=== PATIENT | female | born 1990 | race Caucasian/White ===

== ENCOUNTER 2020-08-29 08:52 | Observation (INO) | payer OTHER ==
[~2020-08-29] VITALS: Ht 165.1 cm; Wt 57.9 kg
[2020-08-29] MEDS ORDERED: ALPR0.5T93 PO (09:46)
[2020-08-29] MEDS ORDERED: BETA15CR5 TP (09:46)
[2020-08-29 09:47] VITALS: BP 115/83
[2020-08-29 10:08] LABS: INTERNATIONAL NORMALIZED RATIO 1.24 (0.93-1.1); PROTHROMBIN TIME 13.2 Seconds (9.6-11.5)
[2020-08-29 10:09] LABS: ALANINE AMINOTRANSFERASE 29 U/L (12-78); ALBUMIN 3.7 g/dL (3.4-5.0); ANION GAP 4 mmol/L (5-15); CALCIUM 8.7 mg/dL (8.5-10.1); CHLORIDE 108 mmol/L (98-107); CREATININE 0.51 mg/dL (0.55-1.02)
[2020-08-29 10:11] LABS: BASOPHILS % (AUTO) 1 % (0-1); EOSINOPHILS % (AUTO) 4 % (1-7); LYMPHOCYTES % (AUTO) 30 % (22-44); MEAN CORPUSCULAR HEMOGLOBIN 28.3 pg (27.0-34.8); MEAN CORPUSCULAR HGB CONC 34.2 g/dL (32.4-35.8); MEAN PLATELET VOLUME 8.2 fL (7.4-10.4); MONOCYTES % (AUTO) 8 % (2-9); NEUTROPHILS % (AUTO) 58 % (42-75); PLATELET COUNT 225 x10^3/uL (130-400); RED BLOOD COUNT 5.08 x10^6/uL (3.82-5.3); RED CELL DISTRIBUTION WIDTH 12.4 % (9.6-15.2)
[2020-08-29 10:14] LABS: ALKALINE PHOSPHATASE 83 U/L (45-117); BILIRUBIN,TOTAL 0.6 mg/dL (0.2-1.0); TOTAL PROTEIN 6.5 g/dL (6.4-8.2)
[2020-08-29 10:15] LABS: MD NO
[2020-08-29] MEDS ORDERED: SODIUM CHLORIDE 0.9% 1,000 ML IV SCH (11:00)
[2020-08-29] MEDS ORDERED: LIDOCAINE 1%, 20ML ONE (12:45)
[2020-08-29] MEDS ORDERED: ISOPROTERENOL 0.2MG/ML, 5ML ONE (12:45)
[2020-08-29] MEDS ORDERED: MIDAZOLAM 1 MG/ML, 2ML ONE (12:45)
[2020-08-29] MEDS ORDERED: FENTANYL PF 100 MCG/2ML ONE ×2 (12:45→13:39)
[2020-08-29] MEDS ORDERED: HEPARIN 1,000 UNITS/ML, 10ML ONE (13:49)
[2020-08-29] MEDS ORDERED: PROTAMINE SULFATE 10 MG/ML, 5ML ONE (14:27)
[2020-08-29] MEDS ORDERED: ASPIRIN 325 MG TABLET EC ONE (14:29)
[2020-08-29] MEDS ORDERED: BETAMETHASONE DIPRO CRM 0.05%, 15GM TP PRN (14:30)
[2020-08-29] MEDS ORDERED: ZOLPIDEM 5MG TABLET PO PRN (14:30)
[2020-08-29] MEDS: ACETAMINOPHEN 325 MG TABLET PO PRN ×2 (16:18→17:35)
[2020-08-29] MEDS ORDERED: ONDANSETRON 4 MG TABLET PO PRN (16:30)
[2020-08-29] MEDS ORDERED: ONDANSETRON ODT 4 MG PO PRN (16:30)
[2020-08-29] MEDS: ONDANSETRON 2MG/ML, 2ML IVPush PRN ×2 (16:36→20:27)
[2020-08-29 20:02] VITALS: BP 103/62
[2020-08-29] MEDS ORDERED: ASA/APAP/ CAFFEINE TABLET PO PRN (20:30)
[2020-08-30 05:10] VITALS: BP_SYST 103; BP_SYST 98; BP_DIAS 65; BP_DIAS 67
[2020-08-30] MEDS ORDERED: ASPIRIN 325 MG TABLET PO SCH (06:00)
[2020-08-30 08:01] VITALS: BP 101/65
[2020-08-30] MEDS ORDERED: ASPI-1027 PO (09:53)
[2020-08-30] MEDS ORDERED: ACET325T26 PO (09:53)
== END 2020-08-30 10:55 | disposition home or self-care (01) ==
LOC: CACL 08:52 → 5SO 14:19 → CACL 21:55 → DCLOUNGE 08-30 10:50
PROVIDERS: ADMIT Internal Medicine Cardiovascular Disease; ATTEND Internal Medicine Cardiovascular Disease
DX: I45.6 Pre-excitation syndrome (principal); I47.1 Supraventricular tachycardia; Z79.899 Other long term (current) drug therapy
CPT/HCPCS: 36415; 71046; 80053; 84443; 84703; 85025; 85610; 93005; 93462; 93613; 93621; 93653; 93662; 96374; 96376; 99156; 99157; C1730; C1766; C1893; C1894; C2630; G0378; J1644; J2250; J2405; J2720; J3010; J3490; Q0162